=== PATIENT | male | born 1970 | race Caucasian/White ===

== ENCOUNTER 2018-04-16 16:02 | Inpatient (IN) | payer MEDICAID ==
[~2018-04-16] VITALS: Ht 180.3 cm; Wt 90.3 kg
[2018-04-16] MEDS ORDERED: BUPR-93 PO (16:43)
[2018-04-16] MEDS ORDERED: SERT100T12 PO (16:43)
[2018-04-16 17:07] LABS: BASOPHILS % (AUTO) 0.8 % (0.0-2.0); EOSINOPHILS % (AUTO) 0.9 % (1.0-6.0); HEMATOCRIT 41.8 % (41-53); HEMOGLOBIN 14.4 g/dL (13.5-17.5); LYMPHOCYTES % (AUTO) 24.1 % (22.0-44.0); MEAN CORPUSCULAR HEMOGLOBIN 31.2 pg (26.0-34.0); MEAN CORPUSCULAR HGB CONC 34.5 G/dL (31.0-37.0); MEAN CORPUSCULAR VOLUME 91 fL (80-100); MONOCYTES # (AUTO) 0.7 K/uL (0.1-1.0); MONOCYTES % (AUTO) 7.8 % (2.0-9.0); NEUTROPHILS # (AUTO) 5.6 K/uL (1.8-7.7); NEUTROPHILS % (AUTO) 66.4 % (40.0-70.0); PLATELET COUNT (AUTO) 337 K/uL (150-450); RED BLOOD CELL COUNT(AUTO) 4.61 MIL/uL (4.50-5.90); RED CELL DISTRIBUTION WIDTH 13.9 % (11.5-14.5)
[2018-04-16 17:15] LABS: AMPHET/METH SCREEN,URINE NEGATIVE (NEGATIVE); BARBITURATE SCREEN, URINE NEGATIVE (NEGATIVE); BENZODIAZEPINES SCREEN,URINE NEGATIVE (NEGATIVE); CANNABINOID SCREEN,URINE NEGATIVE (NEGATIVE); COCAINE SCREEN,URINE NEGATIVE (NEGATIVE); METHADONE SCREEN, URINE NEGATIVE (NEGATIVE); OPIATE SCREEN,URINE NEGATIVE (NEGATIVE); PHENCYCLIDINE SCREEN,URINE NEGATIVE (NEGATIVE)
[2018-04-16 17:15] LABS: ANION GAP 9 mmol/L (8-16); CALCIUM, TOTAL 8.4 mg/dL (8.8-10.5); CARBON DIOXIDE 28 mmol/L (22-29); CHLORIDE 101 mmol/L (98-107); CREATININE 0.96 mg/dL (0.60-1.30); GLOMERULAR FILTR. RATE CALC > 60 mL/min (>60); GLUCOSE,RANDOM 103 mg/dL (70-110); POTASSIUM 4.1 mmol/L (3.5-5.1); SODIUM SERUM 138 mmol/L (136-145); UREA NITROGEN, BLOOD 8 mg/dL (7-18)
[2018-04-16] MEDS ORDERED: GuaiFENesin/D-METHORPHAN [SUGAR-FREE] 200-20MG/10 ML SYRUP UDCUP PO PRN (17:15)
[2018-04-16] MEDS ORDERED: TUBERCULIN, PURIFIED PROTEIN DERIVATIVE 5 TU/0.1 ML SYG ID ONE (17:15)
[2018-04-16] MEDS ORDERED: HydrOXYzine PAMOATE 50 MG CAPSULE PO PRN (17:15)
[2018-04-16] MEDS ORDERED: ZOLPIDEM TARTRATE 10 MG TABLET PO PRN (17:15)
[2018-04-16] MEDS ORDERED: QUEtiapine FUMARATE 100 MG TABLET PO PRN (17:15)
[2018-04-16] MEDS ORDERED: MAGNESIUM HYDROXIDE SUSPENSION 30 ML UDCUP PO PRN (17:15)
[2018-04-16] MEDS ORDERED: ACETAMINOPHEN 325 MG TABLET PO PRN (17:15)
[2018-04-16] MEDS ORDERED: LOPERAMIDE HCL 2 MG CAPSULE PO PRN (17:15)
[2018-04-16] MEDS ORDERED: LORazepam 2 MG TABLET PO PRN (17:15)
[2018-04-16] MEDS ORDERED: MAG HYDROX/AL HYDROX/SIMETH ES 30 ML SUSPENSION UDCUP PO PRN (17:15)
[2018-04-16] MEDS ORDERED: PROMETHAZINE HCL 25 MG TABLET PO PRN ×2 (17:15)
[2018-04-16 17:20] LABS: ALANINE AMINOTRANSFERASE 33 U/L (12-78); ALBUMIN 3.6 g/dL (3.4-5.0); ALKALINE PHOSPHATASE 65 U/L (46-116); ASPARTATE AMINOTRANSFERASE 27 U/L (15-37); BILIRUBIN,TOTAL 0.5 mg/dL (0.1-1.0); TOTAL PROTEIN, SERUM 7.5 g/dL (6.4-8.2)
[2018-04-16] MEDS: THIAMINE HCL 100 MG TABLET PO SCH (20:59)
[2018-04-17 07:51] LABS: BASOPHILS % (AUTO) 0.6 % (0.0-2.0); EOSINOPHILS % (AUTO) 0.9 % (1.0-6.0); HEMATOCRIT 45.1 % (41-53); HEMOGLOBIN 15.5 g/dL (13.5-17.5); LYMPHOCYTES # (AUTO) 1.9 K/uL (1.0-4.8); LYMPHOCYTES % (AUTO) 22.1 % (22.0-44.0); MEAN CORPUSCULAR HEMOGLOBIN 31.3 pg (26.0-34.0); MEAN CORPUSCULAR HGB CONC 34.5 G/dL (31.0-37.0); MEAN CORPUSCULAR VOLUME 91 fL (80-100); MONOCYTES # (AUTO) 0.9 K/uL (0.1-1.0); MONOCYTES % (AUTO) 10.4 % (2.0-9.0); NEUTROPHILS # (AUTO) 5.6 K/uL (1.8-7.7); PLATELET COUNT (AUTO) 337 K/uL (150-450); RED BLOOD CELL COUNT(AUTO) 4.97 MIL/uL (4.50-5.90)
[2018-04-17 08:18] LABS: ALANINE AMINOTRANSFERASE 37 U/L (12-78); ALKALINE PHOSPHATASE 67 U/L (46-116); ANION GAP 7 mmol/L (8-16); ASPARTATE AMINOTRANSFERASE 54 U/L (15-37); BILIRUBIN,TOTAL 1.1 mg/dL (0.1-1.0); CALCIUM, TOTAL 9.3 mg/dL (8.8-10.5); CARBON DIOXIDE 29 mmol/L (22-29); CHLORIDE 101 mmol/L (98-107); CHOL/HDL RATIO 2.7 (4.2-7.3); CHOLESTEROL 202 mg/dL (131-200); CREATININE 1.17 mg/dL (0.60-1.30); FREE T4 (FREE THYROXINE) 0.73 ng/dL (0.76-1.46); GLOMERULAR FILTR. RATE CALC > 60 mL/min (>60); GLUCOSE,RANDOM 111 mg/dL (70-110); HDL CHOLESTEROL 74 mg/dL (40-60); LDL CHOL (CALC.) 114 mg/dL (0-130); POTASSIUM 4.4 mmol/L (3.5-5.1); SODIUM SERUM 137 mmol/L (136-145); THYROID STIMULATING HORMONE 1.73 uIU/mL (0.36-3.74); TOTAL PROTEIN, SERUM 7.9 g/dL (6.4-8.2); TRIGLYCERIDES 68 mg/dL (15-150); UREA NITROGEN, BLOOD 12 mg/dL (7-18)
[2018-04-17] MEDS: NALTREXONE HCL 50 MG TABLET PO SCH (08:29)
[2018-04-17] MEDS: MULTIVITAMINS WITH MINERALS, THERAPEUTIC TABLET PO SCH (08:31)
[2018-04-17] MEDS: FOLIC ACID 1 MG TABLET PO SCH (08:31)
[2018-04-17] MEDS: THIAMINE HCL 100 MG TABLET PO SCH ×2 (08:31→16:41)
[2018-04-17] MEDS: SERTRALINE HCL 50 MG TABLET PO SCH (08:34)
[2018-04-17] MEDS ORDERED: OLANZapine 5 MG RAPDIS TABLET PO PRN (18:00)
[2018-04-17] MEDS: OLANZapine 5 MG RAPDIS TABLET PO SCH (21:00)
[2018-04-17 21:44] VITALS: BP 125/76
[2018-04-18 00:10] VITALS: BP 126/67
[2018-04-18 08:00] VITALS: BP 122/80
[2018-04-18] MEDS: NALTREXONE HCL 50 MG TABLET PO SCH (08:29)
[2018-04-18] MEDS: FOLIC ACID 1 MG TABLET PO SCH (08:29)
[2018-04-18] MEDS: SERTRALINE HCL 50 MG TABLET PO SCH (08:29)
[2018-04-18] MEDS: THIAMINE HCL 100 MG TABLET PO SCH ×2 (08:29→17:01)
[2018-04-18] MEDS: MULTIVITAMINS WITH MINERALS, THERAPEUTIC TABLET PO SCH (08:29)
[2018-04-18] MEDS ORDERED: MECLIZINE HCL 25 MG TABLET PO PRN (10:30)
[2018-04-18] MEDS: DICYCLOMINE HCL 20 MG TABLET PO SCH ×2 (12:33→17:01)
[2018-04-18 16:00] VITALS: BP 119/64
[2018-04-18] MEDS: OLANZapine 5 MG RAPDIS TABLET PO SCH (21:00)
[2018-04-19 06:05] VITALS: BP 122/72
[2018-04-19 08:17] VITALS: BP 115/66
[2018-04-19] MEDS: DICYCLOMINE HCL 20 MG TABLET PO SCH ×3 (08:42→16:53)
[2018-04-19] MEDS: MULTIVITAMINS WITH MINERALS, THERAPEUTIC TABLET PO SCH (08:42)
[2018-04-19] MEDS: THIAMINE HCL 100 MG TABLET PO SCH ×2 (08:42→16:53)
[2018-04-19] MEDS: FOLIC ACID 1 MG TABLET PO SCH (08:42)
[2018-04-19] MEDS: NALTREXONE HCL 50 MG TABLET PO SCH (08:45)
[2018-04-19] MEDS: SERTRALINE HCL 50 MG TABLET PO SCH (08:45)
[2018-04-19 16:00] VITALS: BP 118/69
[2018-04-19] MEDS ORDERED: PALIPERIDONE PALMITATE 234 MG/1.5 ML SYRINGE IM ONE (16:00)
[2018-04-19] MEDS: OLANZapine 5 MG RAPDIS TABLET PO SCH (20:51)
[2018-04-20 06:25] VITALS: BP 109/68
[2018-04-20] MEDS: MULTIVITAMINS WITH MINERALS, THERAPEUTIC TABLET PO SCH (08:08)
[2018-04-20] MEDS: THIAMINE HCL 100 MG TABLET PO SCH ×2 (08:08→16:19)
[2018-04-20] MEDS: DICYCLOMINE HCL 20 MG TABLET PO SCH ×3 (08:08→16:18)
[2018-04-20] MEDS: FOLIC ACID 1 MG TABLET PO SCH (08:08)
[2018-04-20 08:10] VITALS: BP 122/69
[2018-04-20] MEDS: SERTRALINE HCL 50 MG TABLET PO SCH (08:10)
[2018-04-20] MEDS: NALTREXONE HCL 50 MG TABLET PO SCH (08:10)
[2018-04-20 16:00] VITALS: BP 112/63
[2018-04-20] MEDS: OLANZapine 5 MG RAPDIS TABLET PO SCH (20:43)
[2018-04-21 06:18] VITALS: BP 109/66
[2018-04-21 07:30] VITALS: BP 108/76
[2018-04-21] MEDS: THIAMINE HCL 100 MG TABLET PO SCH ×2 (08:51→15:49)
[2018-04-21] MEDS: DICYCLOMINE HCL 20 MG TABLET PO SCH ×3 (08:51→15:48)
[2018-04-21] MEDS: SERTRALINE HCL 50 MG TABLET PO SCH (08:51)
[2018-04-21] MEDS: MULTIVITAMINS WITH MINERALS, THERAPEUTIC TABLET PO SCH (08:51)
[2018-04-21] MEDS: FOLIC ACID 1 MG TABLET PO SCH (08:51)
[2018-04-21] MEDS: NALTREXONE HCL 50 MG TABLET PO SCH (08:52)
[2018-04-21 16:13] VITALS: BP 117/67
[2018-04-22 06:23] VITALS: BP 104/69
[2018-04-22 08:23] VITALS: BP 120/74
[2018-04-22] MEDS: DICYCLOMINE HCL 20 MG TABLET PO SCH ×3 (09:00→16:27)
[2018-04-22] MEDS: FOLIC ACID 1 MG TABLET PO SCH (09:00)
[2018-04-22] MEDS: MULTIVITAMINS WITH MINERALS, THERAPEUTIC TABLET PO SCH (09:00)
[2018-04-22] MEDS ORDERED: SERTRALINE HCL 100 MG TABLET PO SCH (09:00)
[2018-04-22] MEDS: NALTREXONE HCL 50 MG TABLET PO SCH (09:00)
[2018-04-22] MEDS: THIAMINE HCL 100 MG TABLET PO SCH ×2 (09:00→16:27)
[2018-04-22 16:07] VITALS: BP 135/77
[2018-04-22] MEDS: SERTRALINE HCL 100 MG TABLET PO SCH (21:26)
[2018-04-23 06:30] VITALS: BP 108/68
[2018-04-23 08:01] VITALS: BP 119/75
[2018-04-23] MEDS: DICYCLOMINE HCL 20 MG TABLET PO SCH ×3 (08:37→17:17)
[2018-04-23] MEDS: MULTIVITAMINS WITH MINERALS, THERAPEUTIC TABLET PO SCH (08:37)
[2018-04-23] MEDS: THIAMINE HCL 100 MG TABLET PO SCH ×2 (08:37→17:17)
[2018-04-23] MEDS: FOLIC ACID 1 MG TABLET PO SCH (08:37)
[2018-04-23] MEDS ORDERED: PALIPERIDONE PALMITATE 156 MG/ML SYRINGE IM ONE (10:30)
[2018-04-23 16:02] VITALS: BP 119/69
[2018-04-23] MEDS: SERTRALINE HCL 100 MG TABLET PO SCH (21:12)
[2018-04-24 01:07] VITALS: BP 124/79
[2018-04-24 08:07] VITALS: BP 124/69
[2018-04-24] MEDS: DICYCLOMINE HCL 20 MG TABLET PO SCH ×3 (08:35→16:35)
[2018-04-24] MEDS: THIAMINE HCL 100 MG TABLET PO SCH ×2 (08:35→16:35)
[2018-04-24] MEDS: MULTIVITAMINS WITH MINERALS, THERAPEUTIC TABLET PO SCH (08:35)
[2018-04-24] MEDS: FOLIC ACID 1 MG TABLET PO SCH (08:35)
[2018-04-24 16:00] VITALS: BP 119/64
[2018-04-24] MEDS: SERTRALINE HCL 100 MG TABLET PO SCH (21:21)
[2018-04-25 06:34] VITALS: BP 127/83
[2018-04-25 08:16] VITALS: BP 110/61
[2018-04-25] MEDS ORDERED: DICY20 PO (08:20)
[2018-04-25] MEDS ORDERED: SERT100T12 PO (08:20)
[2018-04-25] MEDS: THIAMINE HCL 100 MG TABLET PO SCH (08:27)
[2018-04-25] MEDS: DICYCLOMINE HCL 20 MG TABLET PO SCH (08:27)
[2018-04-25] MEDS: MULTIVITAMINS WITH MINERALS, THERAPEUTIC TABLET PO SCH (08:27)
[2018-04-25] MEDS: FOLIC ACID 1 MG TABLET PO SCH (08:27)
[2018-04-25] MEDS ORDERED: MECL-111 PO ×2 (09:09→09:10)
== END 2018-04-25 09:15 | disposition home or self-care (01) | DRG 750 ==
LOC: EMS 16:03 → B3A 04-17 13:10
PROVIDERS: ADMIT Psychiatry & Neurology Psychiatry; ATTEND Psychiatry & Neurology Psychiatry
DX: F25.0 Schizoaffective disorder, bipolar type (principal); Z91.19 Patient's noncompliance with other medical treatment and regimen; Z88.0 Allergy status to penicillin; Z59.0 Homelessness; Z91.5 Personal history of self-harm; Z79.899 Other long term (current) drug therapy; Z88.1 Allergy status to other antibiotic agents; Z90.49 Acquired absence of other specified parts of digestive tract
CPT/HCPCS: 83036; 84439; 84443; 86592; 87081; 99285; G0480

== ENCOUNTER 2018-07-06 10:10 | Inpatient (IN) | payer MEDICAID ==
[~2018-07-06] VITALS: Ht 180.3 cm; Wt 97.5 kg
[~2018-07-06 10:10] MED LIST: DICY20 PO; MECL-111 PO; SERT100T12 PO
[2018-07-06] MEDS ORDERED: SERT100T12 PO (12:12)
[2018-07-06] MEDS ORDERED: ARIP15TA2 PO (12:12)
[2018-07-06 12:39] LABS: BASOPHILS % (AUTO) 0.6 % (0.0-2.0); EOSINOPHILS % (AUTO) 1.8 % (1.0-6.0); HEMATOCRIT 41.5 % (41-53); HEMOGLOBIN 14.5 g/dL (13.5-17.5); LYMPHOCYTES % (AUTO) 19.2 % (22.0-44.0); MEAN CORPUSCULAR HEMOGLOBIN 31.3 pg (26.0-34.0); MEAN CORPUSCULAR VOLUME 90 fL (80-100); MONOCYTES # (AUTO) 0.8 K/uL (0.1-1.0); MONOCYTES % (AUTO) 7.7 % (2.0-9.0); NEUTROPHILS # (AUTO) 7.3 K/uL (1.8-7.7); NEUTROPHILS % (AUTO) 70.7 % (40.0-70.0); PLATELET COUNT (AUTO) 471 K/uL (150-450); RED BLOOD CELL COUNT(AUTO) 4.64 MIL/uL (4.50-5.90); RED CELL DISTRIBUTION WIDTH 13.9 % (11.5-14.5)
[2018-07-06 12:40] LABS: ANION GAP 5 mmol/L (8-16); CALCIUM, TOTAL 8.7 mg/dL (8.8-10.5); CARBON DIOXIDE 32 mmol/L (22-29); CHLORIDE 104 mmol/L (98-107); CREATININE 1.05 mg/dL (0.60-1.30); GLOMERULAR FILTR. RATE CALC > 60 mL/min (>60); GLUCOSE,RANDOM 93 mg/dL (70-110); POTASSIUM 4.7 mmol/L (3.5-5.1); SODIUM SERUM 141 mmol/L (136-145); UREA NITROGEN, BLOOD 12 mg/dL (7-18)
[2018-07-06 12:41] LABS: AMPHET/METH SCREEN,URINE NEGATIVE (NEGATIVE); BARBITURATE SCREEN, URINE NEGATIVE (NEGATIVE); BENZODIAZEPINES SCREEN,URINE NEGATIVE (NEGATIVE); CANNABINOID SCREEN,URINE NEGATIVE (NEGATIVE); COCAINE SCREEN,URINE NEGATIVE (NEGATIVE); METHADONE SCREEN, URINE NEGATIVE (NEGATIVE); OPIATE SCREEN,URINE NEGATIVE (NEGATIVE)
[2018-07-06 12:45] LABS: PHENCYCLIDINE SCREEN,URINE NEGATIVE (NEGATIVE)
[2018-07-06 12:46] LABS: ALANINE AMINOTRANSFERASE 22 U/L (12-78); ALBUMIN 3.4 g/dL (3.4-5.0); ALKALINE PHOSPHATASE 75 U/L (46-116); ASPARTATE AMINOTRANSFERASE 18 U/L (15-37); BILIRUBIN,TOTAL 0.2 mg/dL (0.1-1.0); TOTAL PROTEIN, SERUM 7.8 g/dL (6.4-8.2)
[2018-07-06] MEDS ORDERED: ZOLPIDEM TARTRATE 10 MG TABLET PO PRN (14:30)
[2018-07-06] MEDS ORDERED: LORazepam 2 MG TABLET PO PRN (14:30)
[2018-07-06] MEDS ORDERED: OLANZapine 5 MG RAPDIS TABLET PO PRN (14:30)
[2018-07-06 16:45] VITALS: BP 116/87
[2018-07-06] MEDS ORDERED: ACETAMINOPHEN 325 MG TABLET PO PRN (17:15)
[2018-07-06] MEDS ORDERED: ALBUTEROL SULFATE HFA 90 MCG/PUFF 8 GM INHALER IH PRN (17:15)
[2018-07-06] MEDS ORDERED: MAGNESIUM HYDROXIDE SUSPENSION 30 ML UDCUP PO PRN (17:15)
[2018-07-06] MEDS ORDERED: MECLIZINE HCL 25 MG TABLET PO PRN (17:15)
[2018-07-06] MEDS ORDERED: ONDANSETRON HCL 4 MG TABLET PO PRN (17:15)
[2018-07-06] MEDS ORDERED: MAG HYDROX/AL HYDROX/SIMETH ES 30 ML SUSPENSION UDCUP PO PRN (17:15)
[2018-07-06] MEDS ORDERED: LOPERAMIDE HCL 2 MG CAPSULE PO PRN (17:15)
[2018-07-06] MEDS ORDERED: GuaiFENesin/D-METHORPHAN [SUGAR-FREE] 200-20MG/10 ML SYRUP UDCUP PO PRN (17:15)
[2018-07-06] MEDS ORDERED: CloNIDine HCL 0.1 MG TABLET PO PRN (17:15)
[2018-07-06] MEDS ORDERED: DOCUSATE SODIUM 100 MG CAPSULE PO PRN (17:15)
[2018-07-06] MEDS ORDERED: IBUPROFEN 400 MG TABLET PO PRN (17:15)
[2018-07-06] MEDS ORDERED: PETROLATUM,WHITE 71 GM JELLY TP PRN (17:15)
[2018-07-06] MEDS ORDERED: SERTRALINE HCL 100 MG TABLET PO SCH ×2 (21:00)
[2018-07-07 07:12] LABS: BASOPHILS % (AUTO) 0.7 % (0.0-2.0); EOSINOPHILS % (AUTO) 2.4 % (1.0-6.0); HEMATOCRIT 40.2 % (41-53); HEMOGLOBIN 14.2 g/dL (13.5-17.5); LYMPHOCYTES # (AUTO) 1.9 K/uL (1.0-4.8); LYMPHOCYTES % (AUTO) 18.3 % (22.0-44.0); MEAN CORPUSCULAR HEMOGLOBIN 31.9 pg (26.0-34.0); MEAN CORPUSCULAR HGB CONC 35.4 G/dL (31.0-37.0); MEAN CORPUSCULAR VOLUME 90 fL (80-100); MONOCYTES # (AUTO) 0.8 K/uL (0.1-1.0); MONOCYTES % (AUTO) 7.8 % (2.0-9.0); NEUTROPHILS # (AUTO) 7.3 K/uL (1.8-7.7); NEUTROPHILS % (AUTO) 70.8 % (40.0-70.0); PLATELET COUNT (AUTO) 406 K/uL (150-450); RED BLOOD CELL COUNT(AUTO) 4.46 MIL/uL (4.50-5.90); RED CELL DISTRIBUTION WIDTH 14.1 % (11.5-14.5)
[2018-07-07 07:23] VITALS: BP 119/69
[2018-07-07 07:35] LABS: ALANINE AMINOTRANSFERASE 23 U/L (12-78); ALBUMIN 3.2 g/dL (3.4-5.0); ALKALINE PHOSPHATASE 66 U/L (46-116); ANION GAP 4 mmol/L (8-16); ASPARTATE AMINOTRANSFERASE 18 U/L (15-37); BILIRUBIN,TOTAL 0.5 mg/dL (0.1-1.0); CARBON DIOXIDE 31 mmol/L (22-29); CHLORIDE 101 mmol/L (98-107); CHOL/HDL RATIO 3.3 (4.2-7.3); CHOLESTEROL 166 mg/dL (131-200); CREATININE 1.06 mg/dL (0.60-1.30); GLOMERULAR FILTR. RATE CALC > 60 mL/min (>60); GLUCOSE,RANDOM 87 mg/dL (70-110); HDL CHOLESTEROL 51 mg/dL (40-60); LDL CHOL (CALC.) 82 mg/dL (0-130); POTASSIUM 4.6 mmol/L (3.5-5.1); SODIUM SERUM 136 mmol/L (136-145); THYROID STIMULATING HORMONE 0.92 uIU/mL (0.36-3.74); TOTAL PROTEIN, SERUM 6.8 g/dL (6.4-8.2); TRIGLYCERIDES 166 mg/dL (15-150); UREA NITROGEN, BLOOD 10 mg/dL (7-18)
[2018-07-07 07:43] LABS: HEMOGLOBIN A1C 5.3 % (4.5-6.2)
[2018-07-07 08:31] VITALS: BP 116/61
[2018-07-07] MEDS: HYDROCORTISONE 1% 30 GM CREAM TP SCH ×2 (08:54→16:42)
[2018-07-07] MEDS: DICYCLOMINE HCL 20 MG TABLET PO SCH ×3 (08:55→16:45)
[2018-07-07] MEDS ORDERED: DICYCLOMINE HCL 20 MG TABLET PO SCH (09:00)
[2018-07-07] MEDS: BuPROPion HCL XL 150 MG ER TABLET PO SCH (11:30)
[2018-07-07 16:14] VITALS: BP 108/68
[2018-07-07] MEDS: SERTRALINE HCL 100 MG TABLET PO SCH (21:25)
[2018-07-08 05:34] VITALS: BP 113/73
[2018-07-08 08:05] VITALS: BP 119/67
[2018-07-08] MEDS: DICYCLOMINE HCL 20 MG TABLET PO SCH ×3 (09:00→17:00)
[2018-07-08] MEDS: BuPROPion HCL XL 150 MG ER TABLET PO SCH (09:20)
[2018-07-08] MEDS: HYDROCORTISONE 1% 30 GM CREAM TP SCH ×2 (09:21→16:44)
[2018-07-08 16:42] VITALS: BP 112/80
[2018-07-08] MEDS: SERTRALINE HCL 100 MG TABLET PO SCH (21:26)
[2018-07-09 02:31] VITALS: BP 102/76
[2018-07-09 08:15] VITALS: BP 121/67
[2018-07-09 08:31] LABS: APPEARANCE,URINE CLEAR (CLEAR); BILIRUBIN,URINE NEGATIVE (NEGATIVE); GLUCOSE, URINE (UA) NEGATIVE (NEGATIVE); KETONES,URINE NEGATIVE (NEGATIVE); LEUKOCYTE ESTERASE ,URINE NEGATIVE (NEGATIVE); NITRATE,URINE NEGATIVE (NEGATIVE); OCCULT BLOOD,URINE NEGATIVE (NEGATIVE); PROTEIN,URINE NEGATIVE (NEGATIVE); UROBILINOGEN,URINE 0.2 mg/dL (<=1.0)
[2018-07-09 08:38] LABS: AMPHET/METH SCREEN,URINE NEGATIVE (NEGATIVE); BARBITURATE SCREEN, URINE NEGATIVE (NEGATIVE); BENZODIAZEPINES SCREEN,URINE NEGATIVE (NEGATIVE); CANNABINOID SCREEN,URINE NEGATIVE (NEGATIVE); COCAINE SCREEN,URINE NEGATIVE (NEGATIVE); METHADONE SCREEN, URINE NEGATIVE (NEGATIVE); OPIATE SCREEN,URINE NEGATIVE (NEGATIVE)
[2018-07-09 08:40] LABS: PHENCYCLIDINE SCREEN,URINE NEGATIVE (NEGATIVE)
[2018-07-09] MEDS: HYDROCORTISONE 1% 30 GM CREAM TP SCH ×2 (08:49→17:05)
[2018-07-09] MEDS: BuPROPion HCL XL 150 MG ER TABLET PO SCH (08:49)
[2018-07-09] MEDS: DICYCLOMINE HCL 20 MG TABLET PO SCH ×3 (08:49→17:00)
[2018-07-09 16:19] VITALS: BP 119/68
[2018-07-09] MEDS: SERTRALINE HCL 100 MG TABLET PO SCH (20:36)
[2018-07-10 05:22] VITALS: BP 118/78
[2018-07-10 08:44] VITALS: BP 117/67
[2018-07-10] MEDS: HYDROCORTISONE 1% 30 GM CREAM TP SCH ×2 (09:00→16:41)
[2018-07-10] MEDS: DICYCLOMINE HCL 20 MG TABLET PO SCH ×3 (09:00→17:00)
[2018-07-10] MEDS: BuPROPion HCL XL 150 MG ER TABLET PO SCH (09:02)
[2018-07-10] MEDS: PSYLLIUM SEED ORANGE SF 5.8 GM/PACKET PO PRN (12:44)
[2018-07-10 16:06] VITALS: BP 118/74
[2018-07-10] MEDS: SERTRALINE HCL 100 MG TABLET PO SCH (20:47)
[2018-07-11 01:09] VITALS: BP 121/65
[2018-07-11 08:10] VITALS: BP 118/70
[2018-07-11] MEDS: DICYCLOMINE HCL 20 MG TABLET PO SCH ×2 (09:00→12:25)
[2018-07-11] MEDS: BuPROPion HCL XL 150 MG ER TABLET PO SCH (09:06)
[2018-07-11] MEDS: HYDROCORTISONE 1% 30 GM CREAM TP SCH (09:18)
[2018-07-11] MEDS: PSYLLIUM SEED ORANGE SF 5.8 GM/PACKET PO PRN (09:18)
[2018-07-11] MEDS ORDERED: BUPR-93 PO (09:29)
[2018-07-11] MEDS ORDERED: DICY20 PO (09:29)
== END 2018-07-11 13:30 | disposition home or self-care (01) | DRG 751 ==
LOC: EMS 10:11 → B2S 15:03 → EMS 15:20 → B2S 07-09 05:29
PROVIDERS: ATTEND Psychiatry & Neurology Child & Adolescent Psychiatry
DX: F33.2 Major depressive disorder, recurrent severe without psychotic features (principal); E78.5 Hyperlipidemia, unspecified; F10.10 Alcohol abuse, uncomplicated; K58.9 Irritable bowel syndrome, unspecified; Z59.0 Homelessness; Z88.2 Allergy status to sulfonamides; Z88.0 Allergy status to penicillin; Z28.21 Immunization not carried out because of patient refusal; Z71.41 Alcohol abuse counseling and surveillance of alcoholic; Z79.899 Other long term (current) drug therapy
CPT/HCPCS: 80307; 83036; 84443; 87081; G0480